=== PATIENT | male | born 1995 ===

== ENCOUNTER 2019-07-14 20:25 | Emergency (ER) | payer SELFPAY ==
[2019-07-14 20:32] VITALS: BP 158/81
[2019-07-14 21:15] LABS: Bacteria,Urine 1+ /HPF (Negative); Bilirubin,Urine NEG (Negative); Blood,Urine NEG (Negative); Color,Urine Yellow (Yellow); Mucus,Urine FEW /HPF; Protein,Urine <15 mg/dL mg/dL (Negative); Urobilinogen,Urine < 2.0 mg/dL (<2.0)
[2019-07-14] MEDS ORDERED: PHENAZOPYRIDINE 200 MG TAB PO ONE (21:16)
[2019-07-14] MEDS ORDERED: LIDOCAINE-MPF (1%) 10 MG/1 ML VIAL 5 ML INFILTRATI ONE (21:16)
[2019-07-14] MEDS ORDERED: IBUPROFEN 600 MG TAB PO ONE (21:18)
--- NOTE | 2019-07-14 22:15 | Emergency Department Report ---
ED Male HPI - General Chief complaint: Urogenital-Male Stated complaint: PEE/BURNING/DISCHARGE Source: patient Mode of arrival: Ambulatory Limitations: No Limitations - History of Present Illness Initial comments: Patient is a 23-year-old -[place] male with no past medical history presents to the ED with complaint of acute onset persistent severe dysuria, urinary frequency and urgency, penile discharge and penile pain for the last 2 days. Patient admits to having had an unprotected sexual intercourse about a week ago. Patient denies hematuria, testicular pain, fever, chills, cough, nasal and sinus congestion, sore throat, nausea and vomiting, abdominal pain, low back pain, chest pain or shortness of breath. MD Complaint: penile discharge, dysuria -: Sudden, days(s) (2) Location: penis Radiation: none Severity: severe Severity scale (0 -10): 7 Quality: aching, burning, sharp Consistency: constant Improves with: none Worsens with: urination denies other symptoms, discharge, dysuria. denies: swelling, mass, rash, urinary retention, blood in urine, fever, nausea/vomiting, incontinence - Related Data Sexually active: Yes Previous Rx's Medication Instructions Recorded Last Taken Type Azithromycin 1,000 mg PO ONCE #2 tablet 07/14/19 Unknown Rx Ibuprofen [Motrin] 600 mg PO Q8H PRN #20 tablet 07/14/19 Unknown Rx Phenazopyridine [Pyridium] 100 mg PO Q8H #21 tab 07/14/19 Unknown Rx Sulfamethoxazole/Trimethoprim 1 each PO Q12H #14 tablet 07/14/19 Unknown Rx [Bactrim DS TAB] Allergies Allergy/AdvReac Type Severity Reaction Status Date / Time No Known Allergies Allergy Unverified 07/14/19 20:32 ED Review of Systems ROS: Stated complaint: PEE/BURNING/DISCHARGE Other details as noted in HPI Constitutional: denies: chills, fever Eyes: denies: eye pain, eye discharge, vision change ENT: denies: ear pain, throat pain Respiratory: denies: cough, shortness of breath, wheezing Cardiovascular: denies: chest pain, palpitations Endocrine: no symptoms reported Gastrointestinal: denies: abdominal pain, nausea, diarrhea Genitourinary: urgency, dysuria, frequency, hematuria, discharge. denies: testicular pain, testicular mass Musculoskeletal: denies: back pain, joint swelling, arthralgia Skin: denies: rash, lesions Neurological: denies: headache, weakness, paresthesias Psychiatric: denies: anxiety, depression Hematological/Lymphatic: denies: easy bleeding, easy bruising ED Past Medical Hx - Past Medical History Previous Medical History?: No - Surgical History Past Surgical History?: No - Social History Smoking Status: Current Every Day Smoker Substance Use Type: Marijuana - Medications Home Medications: Home Medications Medication Instructions Recorded Confirmed Last Taken Type Azithromycin 1,000 mg PO ONCE #2 tablet 07/14/19 Unknown Rx Ibuprofen [Motrin] 600 mg PO Q8H PRN #20 tablet 07/14/19 Unknown Rx Phenazopyridine [Pyridium] 100 mg PO Q8H #21 tab 07/14/19 Unknown Rx Sulfamethoxazole/Trimethoprim 1 each PO Q12H #14 tablet 07/14/19 Unknown Rx [Bactrim DS TAB] ED Physical Exam - General Limitations: No Limitations General appearance: alert, in no apparent distress - Head Head exam: Present: atraumatic, normocephalic, normal inspection - Eye Eye exam: Present: normal appearance, PERRL, EOMI Pupils: Present: normal accommodation - ENT ENT exam: Present: normal exam, normal orophraynx, mucous membranes moist, TM's normal bilaterally, normal external ear exam - Neck Neck exam: Present: normal inspection, full ROM. Absent: tenderness, lymphadenopathy - Respiratory Respiratory exam: Present: normal lung sounds bilaterally. Absent: respiratory distress, wheezes, rales, chest wall tenderness, accessory muscle use, decreased breath sounds - Cardiovascular Cardiovascular Exam: Present: regular rate, normal rhythm, normal heart sounds. Absent: systolic murmur, diastolic murmur, rubs, gallop - GI/Abdominal GI/Abdominal exam: Present: soft, normal bowel sounds. Absent: tenderness, guarding, hyperactive bowel sounds, hypoactive bowel sounds - exam: Present: urethral discharge External exam: Present: other (Male surgical consultant present) - Extremities Exam Extremities exam: Present: normal inspection, full ROM, normal capillary refill - Back Exam Back exam: Present: normal inspection, full ROM. Absent: tenderness, CVA tenderness (R), CVA tenderness (L), muscle spasm, paraspinal tenderness, vertebral tenderness - Neurological Exam Neurological exam: Present: alert, oriented X3, CN II-XII intact, normal gait, reflexes normal - Psychiatric Psychiatric exam: Present: normal affect, normal mood - Skin Skin exam: Present: warm, dry, intact, normal color. Absent: rash ED Course Vital Signs 07/14/19 20:30 Temperature 98.1 F Pulse Rate 89 Respiratory 18 Rate Blood Pressure 158/81 O2 Sat by Pulse 99 Oximetry ED Medical Decision Making - Medical Decision Making This is a 23-year-old -[place] male with no past medical history presents to the ED with complaint of acute onset persistent severe dysuria, urinary frequency and urgency, penile discharge and penile pain for the last 2 days. Patient admits to having had an unprotected sexual intercourse about a week ago. In the ED, patient is alert and oriented x3 and is not in distress. Patient was advised that the STD-like symptoms are not emergency to be treated in the ED. Patient opted to pay [employer]vas for this visit in order to get a treatment. Patient was treated in the ED with Rocephin, and urinalysis showed significant urinary tract infection which in the patient is age is likely due to an STD, commonly chlamydia or gonorrhea or both. On reevaluation, patient felt better and was discharged home on more antibiotics. Patient was discharged home on medications and advised to follow-up at the health department for further evaluation and other STD testings. Patient was was advised to ensure that his sexual partner gets treated for the same at the health department. Patient was otherwise advised to return to the ED immediately if symptoms get worse. - Differential Diagnosis Urethritis; STD; UTI; Kidney stones Critical care attestation.: If time is entered above; I have spent that time in minutes in the direct care of this critically ill patient, excluding procedure time. ED Disposition Clinical Impression: Acute gonococcal urethritis, STD (sexually transmitted disease), Acute urinary tract infection Disposition: TO HOME OR SELFCARE Is pt being admited?: No Does the pt Need Aspirin: No Condition: Stable Instructions: Gonococcal Urethritis (ED), Sexually Transmitted Diseases (ED), Urinary Tract Infection in Men (ED) Additional Instructions: Your symptoms are consistent with STD, most likely your gonorrhea and chlamydia. Therefore take medications with food, drink plenty fluids and follow-up with the [facility] department or [facility] for further STD testing such as HIV among others. Ensure that your sexual partner gets treated at the health department as well for STD. Return to the ED immediately if symptoms get worse. Prescriptions: Azithromycin 1,000 mg PO ONCE #2 tablet Sulfamethoxazole/Trimethoprim [Bactrim DS TAB] 1 each PO Q12H #14 tablet Ibuprofen [Motrin] 600 mg PO Q8H PRN #20 tablet PRN Reason: Pain Phenazopyridine [Pyridium] 100 mg PO Q8H #21 tab Referrals: [facility] [Outside] - 7-10 days Time of Disposition: 22:12 Print Language: [id number]
== END 2019-07-14 22:22 | disposition home or self-care (01) ==
LOC: ED 20:25
DX: A54.01 Gonococcal cystitis and urethritis, unspecified (principal); A54.9 Gonococcal infection, unspecified; N39.0 Urinary tract infection, site not specified; F17.200 Nicotine dependence, unspecified, uncomplicated; F12.10 Cannabis abuse, uncomplicated; Z79.1 Long term (current) use of non-steroidal anti-inflammatories (NSAID); Z79.2 Long term (current) use of antibiotics; Z79.899 Other long term (current) drug therapy
CPT/HCPCS: 81001; 87086; 96372; 99283; J0696

== ENCOUNTER 2021-12-03 20:19 | Emergency (ER) | payer SELFPAY | END 2021-12-03 20:55 | disposition left against medical advice (07) | LOC: ED 20:19 | DX: Z00.00 Encounter for general adult medical examination without abnormal findings (principal); Z53.21 Procedure and treatment not carried out due to patient leaving prior to being seen by health care provider ==